=== PATIENT | male | born 1975 | race Caucasian/White ===

== ENCOUNTER 2017-12-29 17:02 | Emergency (ER) | payer BC, SELFPAY ==
[2017-12-29] MEDS ORDERED: Ondansetron HCl/PF 4 MG/2 ML Vial ONE (17:36)
[2017-12-29] MEDS ORDERED: Ketorolac Tromethamine 30 MG/ML VIAL ONE (17:47)
[2017-12-29 18:09] LABS: #Basophils 0.1 thou/uL (0.0-0.2); #Eosinphils 0.2 thou/uL (0.0-0.7); #Lymphocytes 1.5 thou/uL (1.20-3.40); #Monocytes 0.7 thou/uL (0.11-0.59); #Neutrophils 3.4 thou/uL (1.40-6.50); %Basophils 1.4 % (0.0-1.0); %Eosinophils 3.1 % (0.0-10.0); %Lymphocytes 25.8 % (21.0-51.0); %Neutrophils 57.8 % (42.0-75.0); Hemoglobin 16.3 g/dL (14.0-18.0); Mean Corpuscular HGB CONC 36.6 g/dL (32.0-36.0); Mean Corpuscular Hemoglobin 32.6 pg (27.0-31.0); Mean Corpuscular Volume 88.9 fL (78.0-98.0); Mean Platelet Volume 7.2 fL (7.4-10.4); Platelet Count 262 thou/uL (130-400); RBC Distribution Width 10.5 % (11.5-14.5); Red Blood Cell (RBC) Count 5.01 mill/uL (4.70-6.10); White Blood Cell (WBC) Count 5.9 thou/uL (4.8-10.8)
[2017-12-29 18:14] LABS: ALT (SGPT) 62 U/L (8-55); AST (SGOT) 34 U/L (5-34); Albumin 4.3 g/dL (3.5-5.0); Alkaline Phosphatase 64 U/L (40-150); Anion Gap 12 mmol/L (10-20); BUN (Urea Nitrogen) 10 mg/dL (8.9-20.6); Bilirubin, Total 3.2 mg/dL (0.2-1.2); Calc. Creatinine Clearance 0 mL/min (70-130); Calcium 10.1 mg/dL (7.8-10.44); Carbon Dioxide 27 mmol/L (22-29); Chloride 104 mmol/L (98-107); Estimated GFR-MDRD 83; Globulin 2.7 g/dL (2.4-3.5); Glucose 95 mg/dL (70-105); Lipase 19 U/L (8-78); Sodium 139 mmol/L (136-145)
== END 2017-12-29 19:02 | disposition home or self-care (01) ==
LOC: SCSER 17:02
DX: K52.9 Noninfective gastroenteritis and colitis, unspecified (principal)
CPT/HCPCS: 80053; 83690; 85025; 96361; 96374; 96375; J1885; J2405

== ENCOUNTER 2020-12-21 15:34 | Observation (INO) | payer BC ==
[2020-12-21 17:11] VITALS: BMI 34.8
[2020-12-21] MEDS ORDERED: Acetaminophen 325 MG TAB PO PRN (18:10)
[2020-12-21] MEDS ORDERED: Senokot S 8.6-50 MG TAB PO PRN (18:10)
[2020-12-21] MEDS ORDERED: Ondansetron PF 4 MG/2 ML Vial IVP PRN (18:10)
[2020-12-21] MEDS ORDERED: hydrALAZINE 20 MG/ML VIAL SLOW IVP PRN (18:16)
[2020-12-21] MEDS ORDERED: Melatonin 3 MG TAB PO PRN (18:16)
[2020-12-21] MEDS ORDERED: Atorvastatin Calcium 20 MG TAB PO SCH (21:00)
[2020-12-21] MEDS: Famotidine/PF 20 mg/2ml Vial SLOW IVP SCH (21:37)
[2020-12-21] MEDS ORDERED: Enoxaparin Sodium 100 MG/ML SYRINGE SC SCH (22:30)
[2020-12-21 23:36] LABS: SARS-CoV-2 PCR NAA for Saliva Not Detected (NotDetected)
[2020-12-22 06:09] LABS: Hemoglobin A1c 4.6 % (4.0-6.0)
[2020-12-22 06:14] LABS: #Basophils 0.1 thou/uL (0.0-0.2); #Eosinphils 0.3 thou/uL (0.0-0.7); #Lymphocytes 2.5 thou/uL (1.20-3.40); #Monocytes 0.5 thou/uL (0.11-0.59); #Neutrophils 3.1 thou/uL (1.40-6.50); %Basophils 0.9 % (0.0-1.0); %Eosinophils 4.3 % (0.0-10.0); %Lymphocytes 38.9 % (21.0-51.0); %Monocytes 8.3 % (0.0-10.0); %Neutrophils 47.6 % (42.0-75.0); Hemoglobin 14.9 g/dL (14.0-18.0); Mean Corpuscular HGB CONC 35.3 g/dL (32.0-36.0); Mean Corpuscular Hemoglobin 32.5 pg (27.0-31.0); Mean Corpuscular Volume 92.2 fL (78.0-98.0); Mean Platelet Volume 8.1 fL (7.4-10.4); Platelet Count 264 thou/uL (130-400); RBC Distribution Width 12.2 % (11.5-14.5); Red Blood Cell (RBC) Count 4.58 mill/uL (4.70-6.10); White Blood Cell (WBC) Count 6.5 thou/uL (4.8-10.8)
[2020-12-22 06:22] LABS: ALT (SGPT) 46 U/L (8-55); AST (SGOT) 29 U/L (5-34); Albumin 3.6 g/dL (3.5-5.0); Alkaline Phosphatase 49 U/L (40-110); Anion Gap 13 mmol/L (10-20); BUN (Urea Nitrogen) 11 mg/dL (8.9-20.6); Bilirubin, Total 2.3 mg/dL (0.2-1.2); Calc. Creatinine Clearance 135 mL/min (70-130); Calcium 9.2 mg/dL (7.8-10.44); Carbon Dioxide 24 mmol/L (22-29); Chloride 106 mmol/L (98-107); Cholesterol 150 mg/dl (< 200 Desired); Globulin 2.1 g/dL (2.4-3.5); Glucose 100 mg/dL (70-105); HDL Cholesterol 30 mg/dL (>60 Neg Risk); LDL Cholesterol, Calculated 72 mg/dL; Potassium 4.1 mmol/L (3.5-5.1); Protein, Total 5.7 g/dL (6.0-8.3); Sodium 139 mmol/L (136-145); Triglycerides 239 mg/dL (Less than 150)
[2020-12-22] MEDS ORDERED: Clopidogrel Bisulfate 75 MG TAB PO SCH (09:00)
[2020-12-22] MEDS ORDERED: Enoxaparin Sodium 100 MG/ML SYRINGE SC SCH (09:00)
[2020-12-22] MEDS ORDERED: Aspirin Chewable 81 MG TAB PO SCH (09:00)
[2020-12-22] MEDS: Famotidine/PF 20 mg/2ml Vial SLOW IVP SCH (10:32)
[2020-12-22 12:01] VITALS: BP 101/72; TEMP 98.2
== END 2020-12-22 16:57 | disposition home or self-care (01) ==
LOC: 3SE 16:37
PROVIDERS: ADMIT Internal Medicine; ATTEND Internal Medicine
DX: G45.3 Amaurosis fugax (principal); I48.91 Unspecified atrial fibrillation; R42 Dizziness and giddiness; H53.8 Other visual disturbances; E78.1 Pure hyperglyceridemia; I50.20 Unspecified systolic (congestive) heart failure; I08.1 Rheumatic disorders of both mitral and tricuspid valves; I47.1 Supraventricular tachycardia; Z79.899 Other long term (current) drug therapy; Z20.822 Contact with and (suspected) exposure to COVID-19
CPT/HCPCS: 70551; 80053; 80061; 83036; 84443; 85025; 93005; 93010; 93306; 96372; 96374; 96376; G0378; J1650; S0028; U0003; U0005

== ENCOUNTER 2021-05-28 14:25 | Outpatient (CLI) | payer BC | END 2021-05-28 14:26 | disposition home or self-care (01) | LOC: BICULT 14:25 | PROVIDERS: ATTEND Nurse Practitioner Family | DX: R10.32 Left lower quadrant pain (principal) | CPT/HCPCS: 76870; 93976 ==